=== PATIENT | female | born 1955 | race Caucasian/White ===

== ENCOUNTER 2024-05-10 16:02 | Emergency (ER) | payer OTHER, SELFPAY ==
[2024-05-10 16:09] VITALS: BP 135/70
[2024-05-10 18:33] VITALS: BMI 25.4
--- NOTE | 2024-05-10 18:56 | ED.GENMED ---
History of Present Illness
General
Chief Complaint: Fall
Source: patient and family
Time Seen by Provider: 05/10/24 18:47
Travel History
Have you had any contact with someone who has COVID-19?: No
Do you have any symptoms of coronavirus? Fever > 100 degrees, chills, cough, shortness of breath, sore throat, loss of taste or smell, muscle aches, or headache?: No
History of Present Illness
History of Present Illness:
68-year-old female with past medical history of hyperlipidemia and GERD presenting to the emergency department for evaluation after she slipped and fell on a wet floor yesterday afternoon falling onto her left elbow. Patient notes continued pain to
the left elbow as well as pain across her lower back and states about 3 hours ago noticed a small lump on the left temporal region which is mildly tender to touch. There was no reported loss of consciousness, vomiting, visual disturbances, focal
weakness or numbness or any other concerns. Patient denies any use of anticoagulants. Did not take anything for pain today.
Past History
Past History
ED Past Medical History: GERD and Hypercholesterolemia
ED Past Surgical History: None
Social History
Tobacco: Non-smoker
Alcohol: None
Drug: None
Personal:
Living: with family
Employment: Retired
Review of Systems
Review of Systems
All Other Systems: ROS reviewed and negative except as documented in HPI and ROS
Phy Exam
Physical Exam
Physical Exam:
GENERAL: Alert , in no apparent distress
EYE: conjunctiva clear, pupils 3 mm bilateral
Head: Normocephalic atraumatic, no ecchymosis or hematomas appreciated
NECK: Supple, no midline tenderness
ENT: mmm.
LUNGS: no acute respiratory distress
NEUROLOGICAL: Alert and oriented
SKIN: Warm and dry, skin intact.
MUSCULOSKELETAL: well perfused. Moves all extremities without any difficulty. No focal tenderness over the left elbow. Pronates and supinates without any pain or difficulty. Easily palpable radial pulses bilaterally.
PSYCH: Normal and appropriate interaction.
Scores
Heart Failure Risk
Heart Failure Risk Score: Not Applicable
Heart Score for Chest Pain Patients
STEMI patient?: Not applicable
Withdrawal Assessment of Alcohol
Withdrawal Assessment Completed?: Not applicable
Course
Orders/Labs/Results
Orders:
Orders
05/10/24 16:14
CR Elbow - Left Min 3 Views Urgent
Comment:
Reason For Exam: fall
05/10/24 18:56
CR Lumbar Spine Comp Min 4 Vw* Urgent
Comment:
Reason For Exam: low back pain, fall
Vital Signs
Initial and Last Documented VS:
Initial Vital Signs
Temp Pulse Resp BP Pulse Ox
97.8 F 61 18 135/70 97
05/10/24 16:09 05/10/24 16:09 05/10/24 16:09 05/10/24 16:09 05/10/24 16:09
Last Documented Vital Signs
Temp Pulse Resp BP Pulse Ox
97.8 F 58 14 136/72 98
05/10/24 16:09 05/10/24 19:02 05/10/24 19:02 05/10/24 19:02 05/10/24 19:02
MDM/Problems Addressed
Differential Diagnosis Includes:
Elbow contusion, elbow fracture, scalp contusion, lumbar strain, I do not have concern for intracranial pathology
MDM/Problems Addressed:
68-year-old female presenting to the emergency department for evaluation after an accidental slip and fall yesterday, today with continued left elbow pain. Patient also noting intermittent spasm to the lower back and today noticed some left
temporal swelling. On my exam I do not appreciate the temporal swelling and there is no overlying ecchymosis or abrasions. X-ray of the left elbow has been ordered in triage and shows no acute fracture. I do not suspect any significant pathology
to the back either however patient requesting an x-ray of this. Will place a lumbosacral x-ray with anticipation of discharge home following.
*Radiology
Radiology exam reviewed: preliminary read by ED provider (no elbow fracture, scoliosis without evidence for fracture on the lumbosacral x-ray)
*Pulse Oximetry
Patient hypoxic: no
*Critical Care Note
Total Time (30-74mins, 75-104mins- exclusive of procedures): Not Applicable
Patient Management
Escalation/DeEscalation of care consider admission/obs:
Patient's lumbosacral x-ray was also unremarkable for any acute pathologies. Informed of scoliosis which patient was already aware of. Outpatient follow-up as needed. Stable for discharge home.
ED Attending Note
-
Portions of this chart may have been created with voice recognition software.� Occasional wrong word or��sound alike� substitutions may have occurred due to the inherent limitations of voice recognition software.
Discharge Plan
Departure
Patient Disposition: Home (Routine Discharge)
Date of Disposition: 05/10/24
Time of Disposition: 19:54
Patient with high blood pressure during this ER visit?: No
Discharge Problem:
Accidental fall, Contusion of left elbow, Low back pain
Instructions: Preventing falls in adults
Referrals:
NONE,* [Family Provider] -
Interventions
Interventions:
*Risk Screen - Suicide Last Done: 05/10/24 18:33
*General Assessment Last Done: 05/10/24 16:09
*Neglect/Abuse Screening Last Done: 05/10/24 18:33
ED- Fall Risk Assessment Last Done: 05/10/24 18:41
*ED COVID-19 Vaccine History Last Done: 05/10/24 16:09
*Nursing Disposition Last Done: 05/10/24 20:00
ED-Musculoskeletal Assessment Last Done: 05/10/24 19:06
ED- Neurological Assessment Last Done: 05/10/24 19:06
ED-Skin Assessment Last Done: 05/10/24 19:06
Discharge Date and Time
Discharge Date/Time: 05/10/24 20:00
Print Language: ANGUILLAN
[2024-05-10 19:02] VITALS: BP 136/72
== END 2024-05-10 20:00 | disposition home or self-care (01) ==
LOC: EMR 16:02
PROVIDERS: EMERGENCY PHYSICIAN Emergency Medicine
DX: S50.02XA Contusion of left elbow, initial encounter (principal); M54.50 Low back pain, unspecified; W01.0XXA Fall on same level from slipping, tripping and stumbling without subsequent striking against object, initial encounter; M41.9 Scoliosis, unspecified; K21.9 Gastro-esophageal reflux disease without esophagitis; E78.00 Pure hypercholesterolemia, unspecified; Z91.048 Other nonmedicinal substance allergy status
CPT/HCPCS: 99284; 72110; 73080